=== PATIENT | male | born 1980 | race Caucasian/White ===

== ENCOUNTER 2016-11-15 11:26 | Emergency (ER) | payer SELFPAY ==
[~2016-11-15 11:26] MED LIST: ACETAMINOPHEN PO; AMOXICILLIN PO; AMOXICILLIN500 M1 PO; CIPRO PO; DICLOFENAC PO; DOLOBID500 MG PO; FLEXERIL PO; IBUPROFEN PO; LISINOPRIL; LISINOPRIL PO; LORCET 10/650 T1 TAB; MOBIC PO; MOTRIN600 M2 PO; NAPROSYN500 MG PO; NORCO1 TAB 10/3 PO; PEN-VEE K PO; PERCOCET PO; PERCOCET5/325 PO; PRINIVIL40 MG PO; TENORMIN25 MG DOB; TENORMIN50 MG PO; TOPROL XL; TOPROL XL 50 MG50 MG PO; TOPROL XL PO; VICODIN 5/500 T1 TAB PO; VICODIN PO; ZESTRIL40 MG PO
== END 2016-11-15 11:40 | disposition left against medical advice (07) ==
LOC: SED 11:26
DX: T40.1X1A Poisoning by heroin, accidental (unintentional), initial encounter (principal); B19.20 Unspecified viral hepatitis C without hepatic coma; F12.10 Cannabis abuse, uncomplicated
CPT/HCPCS: 99283